=== PATIENT | female | born 1955 | race Caucasian/White ===

== ENCOUNTER → 2016-10-12 | Outpatient (CLI) | payer OTHER ==
--- NOTE | 2016-10-12 19:55 | XR ---
Cervical spine HISTORY: Neck pain 5 views of the cervical spine submitted on 7 images. No comparisons Multilevel facet arthropathy is noted. Bone mineralization is reduced. At C5-6 there is bilateral for aminal encroachment. Lateral extension endplate disc complex is noted. Cervical vertebral bodies show preserved height and alignment. Loss of disc height present at C5-6, there is associated spondylosis . C7-T1 not well seen IMPRESSION: Degenerative disc disease, consider cervical MRI
--- NOTE | 2016-10-12 22:05 | MR ---
EXAMINATION TYPE: MR lumbar spine wo con DATE OF EXAM: 10/12/2016 6:15 PM COMPARISON: NONE HISTORY: LBP, BLE radiculopathy after falling on ice 3 weeks ago TECHNIQUE: Multiplanar, multisequence images of the lumbar spine were acquired. L1-L2: Normal disc appearance without desiccation. No herniation, protrusion or disc bulging. No ca nal stenosis is present. Foramina are patent bilaterally. L2-L3: Normal disc appearance without desiccation. No herniation, protrusion or disc bulging. No ca nal stenosis is present. Foramina are patent bilaterally. L3-L4: Loss of disc height and signal is present. Circumferential disc bulge causes only minimal ante rior mass effect on the thecal sac, no central stenosis. Some minimal left-sided foraminal encroachme nt is suspected due to lateral extension of endplate disc complex. Mild facet arthropathy change. L4-L5: Posterior broad-based disc bulge causes mild anterior mass effect on the thecal sac. No signif icant central stenosis or foraminal encroachment. There is loss of disc height and signal. Facet arth ropathy with hypertrophy of ligamentum flavum causing some minimal posterior lateral mass effect on t he thecal sac L5-S1: Loss of disc height and signal is present, there is a small central posterior disc herniation contacting the anterior thecal sac. No significant central stenosis or foraminal encroachment. There is facet arthropathy change encroaches on the lateral recesses. Lumbar segments are intact. Lumbar vertebral bodies show preserved height and alignment. Multilevel s pondylosis, endplate discogenic marrow signal changes present, increased signal within the L2 vertebr al body is likely territory sales representative of hemangioma. No paraspinal masses are identified. Conus medullar is shows a small syrinx or prominence of the central aqueduct is otherwise normal. Large cystic focus associated with the left kidney measures approximately 5.5 cm. Multilevel nerve sheath diverticula a re present. IMPRESSION: Degenerative disc disease as described.
== END ==
LOC: RADMRIMAIN 17:03
PROVIDERS: ATTEND Family Medicine
DX: M51.36 Other intervertebral disc degeneration, lumbar region (principal); M50.30 Other cervical disc degeneration, unspecified cervical region
CPT/HCPCS: 72050; 72148

== ENCOUNTER → 2016-10-25 | Outpatient (CLI) | payer OTHER ==
--- NOTE | 2016-10-25 14:01 | MR ---
EXAMINATION TYPE: MR cervical spine wo con DATE OF EXAM: 10/25/2016 9:46 AM COMPARISON: Plain films 12 October 2016 HISTORY: Neck pain since TECHNIQUE: Multiplanar, multisequence images of the cervical spine were acquired. C2-C3: No evidence for degenerative disc disease. No disc bulge/herniation or protrusion. No Canal stenosis. Mild left-sided foraminal encroachment due to facet arthropathy.. C3-C4: Right posterior paracentral extension of endplate disc complex causes anterolateral mass effec t on the thecal sac. Bilateral foraminal encroachment right greater than left. On mild central stenos is C4-C5: Broad-based posterior disc bulge causes mild anterior mass effect on the thecal sac. Foraminal encroachment is present bilaterally right greater than left. C5-C6: Posterior extension of endplate disc complex somewhat eccentric toward the left, there is mode rate central canal stenosis, bilateral foraminal encroachment left greater than right due to a circum ferential extension of endplate disc complex. C6-C7: Posterior paracentral extension of endplate disc complex causes anterolateral mass effect on t he thecal sac. Some left-sided foraminal encroachment is present due to lateral extension endplate di sc complex. No significant central stenosis. C7-T1: No evidence for degenerative disc disease. No disc bulge/herniation or protrusion. No Canal stenosis. Foramina are patent bilaterally. Cervical segments are intact. Cervical vertebral bodies show preserved height, there is endplate dis cogenic marrow signal change, multilevel spondylosis, associated loss of disc height and signal is gr eatest at C5-6 and C6-7. There is normal alignment. Cervical spinal cord is of normal signal. Crani overtebral junction relationships are within normal limits. IMPRESSION: Degenerative disc disease, multilevel foraminal encroachment, facet arthropathy. Spinal stenosis grea test at C5-6.
== END | disposition home or self-care (01) ==
LOC: RADMRIMAIN 09:09
PROVIDERS: ATTEND Family Medicine
DX: M48.02 Spinal stenosis, cervical region (principal); M50.30 Other cervical disc degeneration, unspecified cervical region; M46.92 Unspecified inflammatory spondylopathy, cervical region
CPT/HCPCS: 72141

== ENCOUNTER → 2017-10-19 | Outpatient (CLI) | payer OTHER ==
--- NOTE | 2017-10-19 14:29 | CT ---
EXAMINATION TYPE: CT abdomen pelvis wo con DATE OF EXAM: 10/19/2017 COMPARISON: 01/26/2016 HISTORY: Right upper quadrant pain with nausea and diarrhea on and off for 12 years, more frequent re cently. CT DLP: 386.1 mGycm Examination of the solid and hollow viscera is limited given the lack of contrast. FINDINGS: LUNG BASES: No evidence for nodule. No evidence for infiltrate. LIVER/GB: Hepatic steatosis is again noted. Mild hepatomegaly. The gallbladder is unremarkable. No sp adrianna-occupying hepatic lesion. PANCREAS: No pancreatic mass identified. No inflammatory process seen. SPLEEN: No evidence for splenomegaly. No intrasplenic lesions seen. ADRENALS: No adrenal nodules identified. No evidence for thickening. KIDNEYS: Large cyst left kidney upper pole measuring 5.8 cm.. No nephrolithiasis. No hydronephrosis. BOWEL: Appendix has a normal appearance. No evidence of bowel obstruction. No inflammatory process. Lymph nodes: No evidence for adenopathy greater than 1 cm. Abdominal aorta: Atheromatous changes seen. No evidence for aneurysm. Genital organs: No significant abnormality. Other: No significant abnormality. IMPRESSION: 1. Mild hepatomegaly with hepatic steatosis. 2. Large left renal cyst simple type.
== END | disposition home or self-care (01) ==
LOC: RADCTMAIN 12:18
PROVIDERS: ATTEND Family Medicine
DX: K76.0 Fatty (change of) liver, not elsewhere classified (principal); R16.0 Hepatomegaly, not elsewhere classified; N28.1 Cyst of kidney, acquired
CPT/HCPCS: 74176

== ENCOUNTER → 2018-02-06 | Outpatient (CLI) | payer OTHER ==
--- NOTE | 2018-02-07 08:18 | MM ---
Reason for exam: clinical finding. Baseline mammogram. History: Patient is postmenopausal and history of other cancer. Indicated problem(s): pain in the left breast. Physical Findings: Nurse did not find any significant physical abnormalities on exam. MG Diagnostic Mammo w CAD EMMIE Bilateral CC, MLO, and XCCL view(s) were taken. The breast tissue is heterogeneously dense. This may lower the sensitivity of mammography. Nodular asymmetry central left MLO view becomes less defined on spot MLO and disperses on ML. Otherwise, no discrete abnormallity. Precautionary 6 month follow up recommended. These results were verbally communicated with the patient and result sheet given to the patient on 02/06/18. ASSESSMENT: Probably benign, BI-RAD 3 RECOMMENDATION: Follow-up diagnostic mammogram of the left breast in 6 months.
== END | disposition home or self-care (01) ==
LOC: RADMAMWWP 14:45
PROVIDERS: ATTEND Family Medicine
DX: N64.4 Mastodynia (principal)
CPT/HCPCS: 77066

== ENCOUNTER → 2018-05-26 | Outpatient (CLI) | payer OTHER ==
--- NOTE | 2018-05-26 09:15 | MR ---
EXAMINATION TYPE: MR angio head wo con DATE OF EXAM: 05/26/2018 8:39 AM COMPARISON: Previous study dated 09/21/2016. HISTORY: F/U on cerebral aneurysm, compare to prior MRA 09-21-16 TECHNIQUE: Time of flight images focusing on the [place] were performed without contrast. FINDINGS: The vertebral arteries are diminutive. 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 There is a tiny outpouching at the level of the left middle cerebral artery trifurcation. This is unc hanged in size and appearance from the previous study. Both ophthalmic arteries are visualized. There is normal arborization of the middle cerebral arteries . Both anterior cerebral arteries are patent. IMPRESSION: 1. NORMAL VARIANT ANATOMY. 2. PERSISTENT OUTPOUCHING AT THE TRIFURCATION OF THE LEFT MIDDLE CEREBRAL ARTERY, UNCHANGED FROM PREV IOUS.
== END | disposition home or self-care (01) ==
LOC: RADMRIMAIN 08:16
PROVIDERS: ATTEND Psychiatry & Neurology Neurology
DX: I67.1 Cerebral aneurysm, nonruptured (principal)
CPT/HCPCS: 70544

== ENCOUNTER → 2019-01-08 | Outpatient (CLI) | payer OTHER ==
--- NOTE | 2019-01-08 10:13 | MM ---
Reason for exam: additional evaluation requested from prior study. Last mammogram was performed 11 months ago. History: Patient is postmenopausal and history of other cancer. Physical Findings: Nurse did not find any significant physical abnormalities on exam. MG Diagnostic Mammo w CAD EMMIE Bilateral CC and MLO view(s) were taken. Prior study comparison: February 06, 2018, bilateral MG diagnostic mammo w CAD EMMIE. The breast tissue is heterogeneously dense. This may lower the sensitivity of mammography. Stable benign calcifications. There is no discrete abnormality. No significant new findings when compared with previous films. These results were verbally communicated with the patient and result sheet given to the patient on 01/08/19. ASSESSMENT: Benign, BI-RAD 2 RECOMMENDATION: Routine screening mammogram of both breasts in 1 year. Manage patient on a clinical basis.
== END | disposition home or self-care (01) ==
LOC: RADMAMWWP 09:26
PROVIDERS: ATTEND Family Medicine
DX: R92.8 Other abnormal and inconclusive findings on diagnostic imaging of breast (principal)
CPT/HCPCS: 77066

== ENCOUNTER → 2019-02-19 | Outpatient (CLI) | payer OTHER ==
[2019-02-19 14:24] LABS: HCT 47.2 % (34.0-46.0); HGB 15.2 gm/dL (11.4-16.0); MCH 30.6 pg (25.0-35.0); MCHC 32.2 g/dL (31.0-37.0); MCV 95.1 fL (80.0-100.0); Mean Platelet Volume 7.2; Platelet Count 228 k/uL (150-450); RBC 4.96 m/uL (3.80-5.40); RDW 13.9 % (11.5-15.5); WBC 6.3 k/uL (3.8-10.6)
[2019-02-19 20:43] LABS: Albumin 4.2 g/dL (3.80-4.90); Albumin/Globulin Ratio 2.1 (1.60-3.17); Anion Gap 9.1 mmol/L (4.00-12.00); Calcium 8.9 mg/dL (8.7-10.3); Carbon Dioxide 24.9 mmol/L (21.6-31.8); Potassium 4.1 mmol/L (3.5-5.5); Total Bilirubin 0.4 mg/dL (0.2-1.2); Total Protein 6.2 g/dL (6.2-8.2)
== END | disposition home or self-care (01) ==
LOC: LABWHC1 12:46
PROVIDERS: ATTEND Surgery Plastic and Reconstructive Surgery
DX: Z01.818 Encounter for other preprocedural examination (principal); Z01.812 Encounter for preprocedural laboratory examination
CPT/HCPCS: 36415; 80053; 85027; 93005

== ENCOUNTER → 2019-05-30 | Outpatient (CLI) | payer OTHER | END | disposition home or self-care (01) | LOC: RADECHMAIN 12:02 | PROVIDERS: ATTEND Nuclear Medicine Nuclear Cardiology | DX: Z53.9 Procedure and treatment not carried out, unspecified reason (principal) ==

== ENCOUNTER → 2022-04-28 | Outpatient (CLI) | payer MEDICARE ==
--- NOTE | 2022-04-28 12:49 | XR ---
EXAMINATION TYPE: XR shoulder complete LT DATE OF EXAM: 04/28/2022 COMPARISON: NONE HISTORY: Pain TECHNIQUE: Three views are submitted. FINDINGS: The osseous structures are intact. There is no acute fracture or dislocation. The AC joint is maint ained. Diffuse osteopenia. Tiny calcific density along the upper margin of the glenoid could be on t he basis of calcific tendinosis. Consider short-term follow-up MRI. IMPRESSION: 1. No acute process.
== END | disposition home or self-care (01) ==
LOC: RADXRMAIN 12:27
PROVIDERS: ATTEND Family Medicine
DX: S46.011A Strain of muscle(s) and tendon(s) of the rotator cuff of right shoulder, initial encounter (principal); X58.XXXA Exposure to other specified factors, initial encounter

== ENCOUNTER → 2022-06-18 | Outpatient (CLI) | payer MEDICARE ==
--- NOTE | 2022-06-19 03:44 | MR ---
EXAMINATION TYPE: MR shoulder LT wo con DATE OF EXAM: 06/18/2022 COMPARISON: None HISTORY: Left shoulder pain/strain. Multiplanar multiecho imaging of the left shoulder without contrast. Subscapularis tendon is intact. Biceps tendon is intact. The glenoid bernabe appear intact. The AC joint shows mild spur formation. There is mild subacromial impingement on the supraspinatus te ndon. The supraspinatus tendon is intact. No retraction. There is mild shoulder joint effusion. There is fluid around the subscapularis tendon. No fracture seen. IMPRESSION: No evidence of rotator cuff tear. There is hypertrophic spurring at the AC joint with subacromial imp ingement on the supraspinatus muscle and tendon. Small shoulder joint effusion.
== END | disposition home or self-care (01) ==
LOC: RADMRIMAIN 12:11
PROVIDERS: ATTEND Family Medicine
DX: M19.012 Primary osteoarthritis, left shoulder (principal)

== ENCOUNTER → 2022-07-26 | Outpatient (CLI) | payer MEDICARE ==
--- NOTE | 2022-07-26 08:48 | US ---
EXAMINATION TYPE: US gallbladder DATE OF EXAM: 07/26/2022 COMPARISON: Abdominal ultrasound 01/28/2016. CLINICAL HISTORY: R10.11 RUQ PAIN. Intermittent RUQ pain for 15 years, nausea TECHNIQUE: Multiple sonographic images of the right upper quadrant are obtained. FINDINGS: EXAM MEASUREMENTS: Liver Length: 17.7 cm Gallbladder Wall: 0.2 cm CBD: 0.3 cm Right Kidney: 9.9 x 4.7 x 5.4 cm Pancreas: Tail obscured by overlying bowel gas Liver: Increased attenuation, decreased visualization of vessels suggestive of fatty infiltrate . N o focal lesion. Gallbladder: no evidence of stones. No pericholecystic fluid or wall thickening. Evidence for sonographic Duarte's sign: no CBD: wnl Right Kidney: no evidence of hydronephrosis . No solid mass or shadowing calculi. IMPRESSION: 1. No acute process. 2. Hepatic steatosis.
== END | disposition home or self-care (01) ==
LOC: RADUSWWP 08:05
PROVIDERS: ATTEND Internal Medicine Gastroenterology
DX: K76.0 Fatty (change of) liver, not elsewhere classified (principal)
CPT/HCPCS: 76705

== ENCOUNTER → 2022-08-17 | Outpatient (CLI) | payer MEDICARE ==
--- NOTE | 2022-08-17 12:06 | US ---
EXAMINATION TYPE: US kidneys/renal and bladder DATE OF EXAM: 08/17/2022 COMPARISON: 01/20/2016. CLINICAL HISTORY: N28.1 CYST OF KIDNEY, ACQUIRED. Pain hx of cyst. EXAM MEASUREMENTS: Right Kidney: 9.4 x 4.5 x 5.1 cm Left Kidney: 12.2 x 6.0 x 4.9 cm Right Kidney: No hydronephrosis or masses seen Left Kidney: Cystic area upper pole 8.4 x 7.0 x 8.2 cm. Bladder: Anechoic There is no evidence for hydronephrosis at this point in time. No nephrolithiasis is seen. The urina ry bladder is anechoic. IMPRESSION: 1. No evidence of obstructive uropathy. 2. Left renal cyst which has increased in size from 2015.
== END | disposition home or self-care (01) ==
LOC: RADUSWWP 10:33
PROVIDERS: ATTEND Family Medicine
DX: N28.1 Cyst of kidney, acquired (principal); I49.9 Cardiac arrhythmia, unspecified
CPT/HCPCS: 76770

== ENCOUNTER 2022-08-18 09:08 | Emergency (ER) | payer MEDICARE ==
[2022-08-18] MEDS ORDERED: SODIUM CHLORIDE 0.9% 1,000 ML IV STA (09:27)
[2022-08-18 09:42] LABS: Basophils % (A) 1 %; Eosinophils # (A) 0.2 k/uL (0-0.7); Eosinophils % (A) 3 %; HGB 14.6 gm/dL (11.4-16.0); Lymphocytes # (A) 1.3 k/uL (1.0-4.8); Lymphocytes % (A) 26 %; MCH 32.7 pg (25.0-35.0); MCHC 34.8 g/dL (31.0-37.0); MCV 93.9 fL (80.0-100.0); Mean Platelet Volume 8.1; Monocytes # (A) 0.3 k/uL (0-1.0); Monocytes % (A) 6 %; Neutrophils # (A) 3.1 k/uL (1.3-7.7); Neutrophils % (A) 62 %; Platelet Count 242 k/uL (150-450); RBC 4.47 m/uL (3.80-5.40); RDW 13.7 % (11.5-15.5)
[2022-08-18 10:01] LABS: Partial Thromboplastin Time 24.5 sec (22.0-30.0); Prothrombin Time 10.6 sec (9.0-12.0)
[2022-08-18 10:08] LABS: ALT 22 U/L (4-34); AST 23 U/L (14-36); African American GFR (CKD) >90 (>60 ml/min/1.73 sqM); Albumin 4.2 g/dL (3.5-5.0); Alkaline Phosphatase 70 U/L (38-126); Amylase 55 U/L (30-110); Anion Gap 7 mmol/L; Blood Urea Nitrogen 5 mg/dL (7-17); Calcium 8.8 mg/dL (8.4-10.2); Carbon Dioxide 26 mmol/L (22-30); Chloride 103 mmol/L (98-107); Glucose 118 mg/dL (74-99); Lipase 70 U/L (23-300); Non-African American GFR(CKD) >90 (>60 ml/min/1.73 sqM); Potassium 4.3 mmol/L (3.5-5.1); Sodium 136 mmol/L (137-145); Total Bilirubin 0.5 mg/dL (0.2-1.3)
--- NOTE | 2022-08-18 10:08 | ED ---
General Adult HPI - General Chief complaint: Recheck/Abnormal Lab/Rx Stated complaint: Cyst on Kidney Time Seen by Provider: 08/18/22 09:18 Source: patient, RN notes reviewed Mode of arrival: ambulatory Limitations: no limitations - History of Present Illness Initial comments: 66-year-old female presents emergency Department chief complaint of left flank pain. Patient states she's been having increasing pain since Monday. Patient had an ultrasound yesterday showed enlarging cyst of her left kidney. She states this was known to her but is getting bigger. Patient denies any trauma no rashes. She states nothing really makes the pain feel better or worse. Patient states that she cannot get comfortable. She's had no change in bowel habits denies diarrhea, constipation melena hematochezia. No dysuria no hematuria no chest pain or shortness breath. - Related Data Allergies Allergy/AdvReac Type Severity Reaction Status Date / Time No Known Allergies Allergy Verified 08/18/22 09:12 Review of Systems ROS Statement: Those systems with pertinent positive or pertinent negative responses have been documented in the HPI. ROS Other: All systems not noted in ROS Statement are negative. Past Medical History Past Medical History: Hypertension History of Any Multi-Drug Resistant Organisms: None Reported Past Surgical History: Section Past Psychological History: No Psychological Hx Reported Smoking Status: Current every day smoker Past Alcohol Use History: None Reported Past Drug Use History: None Reported General Exam Limitations: no limitations General appearance: alert, in no apparent distress Head exam: Present: atraumatic, normocephalic, normal inspection Neck exam: Present: normal inspection. Absent: tenderness, meningismus, lymphadenopathy Respiratory exam: Present: normal lung sounds bilaterally. Absent: respiratory distress, wheezes, rales, rhonchi, stridor Cardiovascular Exam: Present: regular rate, normal rhythm, normal heart sounds. Absent: systolic murmur, diastolic murmur, rubs, gallop, clicks GI/Abdominal exam: Present: soft, normal bowel sounds. Absent: distended, tenderness, guarding, rebound, rigid Back exam: Absent: CVA tenderness (R), CVA tenderness (L) Neurological exam: Present: alert Skin exam: Present: warm, dry, intact, normal color. Absent: rash Course Vital Signs 08/18/22 09:12 Temperature 98.2 F Pulse Rate 85 Respiratory 16 Rate Blood Pressure 149/72 O2 Sat by Pulse 97 Oximetry Medical Decision Making - Medical Decision Making 66-year-old female presented for left flank pain. Patient CT does show simple appearing cyst that is larger than prior. There is no other acute abnormality's upon CT. Labs did not reveal any acute findings. This is not reproducible pain and felt less likely muscle skeletal dental still possibility. Patient provided pain control will be discharged in stable condition follow-up with urology. - Lab Data Result diagrams: 08/18/22 09:29 08/18/22 09:29 Lab Results 08/18/22 08/18/22 08/18/22 Range/Units 09:29 09:29 09:29 WBC 5.0 (3.8-10.6) k/uL RBC 4.47 (3.80-5.40) m/uL Hgb 14.6 (11.4-16.0) gm/dL Hct 42.0 (34.0-46.0) % MCV 93.9 (80.0-100.0) fL MCH 32.7 (25.0-35.0) pg MCHC 34.8 (31.0-37.0) g/dL RDW 13.7 (11.5-15.5) % Plt Count 242 (150-450) k/uL MPV 8.1 Neutrophils % 62 % Lymphocytes % 26 % Monocytes % 6 % Eosinophils % 3 % Basophils % 1 % Neutrophils # 3.1 (1.3-7.7) k/uL Lymphocytes # 1.3 (1.0-4.8) k/uL Monocytes # 0.3 (0-1.0) k/uL Eosinophils # 0.2 (0-0.7) k/uL Basophils # 0.0 (0-0.2) k/uL PT 10.6 (9.0-12.0) sec INR 1.0 (<1.2) APTT 24.5 (22.0-30.0) sec Sodium (137-145) mmol/L Potassium (3.5-5.1) mmol/L Chloride (98-107) mmol/L Carbon Dioxide (22-30) mmol/L Anion Gap mmol/L BUN (7-17) mg/dL Creatinine (0.52-1.04) mg/dL Est GFR (CKD-EPI)AfAm (>60 ml/min/1.73 sqM) Est GFR (CKD-EPI)NonAf (>60 ml/min/1.73 sqM) Glucose (74-99) mg/dL Plasma Lactic Acid Juan (0.7-2.0) mmol/L Calcium (8.4-10.2) mg/dL Total Bilirubin (0.2-1.3) mg/dL AST (14-36) U/L ALT (4-34) U/L Alkaline Phosphatase (38-126) U/L Total Protein (6.3-8.2) g/dL Albumin (3.5-5.0) g/dL Amylase (30-110) U/L Lipase (23-300) U/L Urine Color Yellow Urine Appearance Cloudy H (Clear) Urine pH 5.5 (5.0-8.0) Ur Specific [place] 1.013 (1.001-1.035) Urine Protein Negative (Negative) Urine Glucose (UA) Negative (Negative) Urine Ketones Negative (Negative) Urine Blood Negative (Negative) Urine Nitrite Negative (Negative) Urine Bilirubin Negative (Negative) Urine Urobilinogen <2.0 (<2.0) mg/dL Ur Leukocyte Esterase Small H (Negative) Urine RBC 2 (0-5) /hpf Urine WBC 4 (0-5) /hpf Ur Squamous Epith Cells 6 H (0-4) /hpf Urine Mucus Few H (None) /hpf 08/18/22 08/18/22 Range/Units 09:29 09:29 WBC (3.8-10.6) k/uL RBC (3.80-5.40) m/uL Hgb (11.4-16.0) gm/dL Hct (34.0-46.0) % MCV (80.0-100.0) fL MCH (25.0-35.0) pg MCHC (31.0-37.0) g/dL RDW (11.5-15.5) % Plt Count (150-450) k/uL MPV Neutrophils % % Lymphocytes % % Monocytes % % Eosinophils % % Basophils % % Neutrophils # (1.3-7.7) k/uL Lymphocytes # (1.0-4.8) k/uL Monocytes # (0-1.0) k/uL Eosinophils # (0-0.7) k/uL Basophils # (0-0.2) k/uL PT (9.0-12.0) sec INR (<1.2) APTT (22.0-30.0) sec Sodium 136 L (137-145) mmol/L Potassium 4.3 (3.5-5.1) mmol/L Chloride 103 (98-107) mmol/L Carbon Dioxide 26 (22-30) mmol/L Anion Gap 7 mmol/L BUN 5 L (7-17) mg/dL Creatinine 0.55 (0.52-1.04) mg/dL Est GFR (CKD-EPI)AfAm >90 (>60 ml/min/1.73 sqM) Est GFR (CKD-EPI)NonAf >90 (>60 ml/min/1.73 sqM) Glucose 118 H (74-99) mg/dL Plasma Lactic Acid Juan 2.3 H* (0.7-2.0) mmol/L Calcium 8.8 (8.4-10.2) mg/dL Total Bilirubin 0.5 (0.2-1.3) mg/dL AST 23 (14-36) U/L ALT 22 (4-34) U/L Alkaline Phosphatase 70 (38-126) U/L Total Protein 7.0 (6.3-8.2) g/dL Albumin 4.2 (3.5-5.0) g/dL Amylase 55 (30-110) U/L Lipase 70 (23-300) U/L Urine Color Urine Appearance (Clear) Urine pH (5.0-8.0) Ur Specific [place] (1.001-1.035) Urine Protein (Negative) Urine Glucose (UA) (Negative) Urine Ketones (Negative) Urine Blood (Negative) Urine Nitrite (Negative) Urine Bilirubin (Negative) Urine Urobilinogen (<2.0) mg/dL Ur Leukocyte Esterase (Negative) Urine RBC (0-5) /hpf Urine WBC (0-5) /hpf Ur Squamous Epith Cells (0-4) /hpf Urine Mucus (None) /hpf Disposition Clinical Impression: Renal cyst, Flank pain Disposition: HOME SELF-CARE Condition: Stable Instructions (If sedation given, give patient instructions): Kidney Cyst (ED), Flank Pain (ED) Additional Instructions: Please return to the Emergency Department if symptoms worsen or any other concerns. Is patient prescribed a controlled substance at d/c from ED?: No Referrals: Rian Nails DO [Primary Care Provider] - 1-2 days Song Ward MD [STAFF PHYSICIAN] - 1-2 days Time of Disposition: 11:06
[2022-08-18 10:41] LABS: Appearance,Urine Cloudy (Clear); Bilirubin,Urine Negative (Negative); Blood,Urine Negative (Negative); Color,Urine Yellow; Glucose,Urine (UA) Negative (Negative); Ketones,Urine Negative (Negative); Leukocyte Esterase,Urine Small (Negative); Mucus,Urine Few /hpf; Nitrite,Urine Negative (Negative); PH, Urine 5.5 (5.0-8.0); Protein,Urine Negative (Negative); RBC,Urine 2 /hpf (0-5); Specific Gravity,Urine 1.013 (1.001-1.035); Squamous Epithelial Cell,Urine 6 /hpf (0-4); Urobilinogen,Urine <2.0 mg/dL (<2.0); WBC,Urine 4 /hpf (0-5)
--- NOTE | 2022-08-18 10:49 | CT ---
EXAMINATION TYPE: CT abdomen pelvis w con CT DLP: 848.6 mGycm, Automated exposure control for dose reduction was used. DATE OF EXAM: 08/18/2022 10:36 AM COMPARISON: CT abdomen pelvis most recent from 10/19/2017, renal ultrasound 08/17/2022. CLINICAL INDICATION:Female, 66 years old with history of left flank pain, abnormal ultrasound; Left s ided flank pain. TECHNIQUE: Standard CT of the abdomen and pelvis following the administration of 70 cc of Isovue 30 0 IV contrast material. Coronal and sagittal reformats were performed. FINDINGS: LOWER CHEST: Posterior dependent subsegmental atelectasis is noted. ABDOMEN LIVER: Diffusely hypoattenuating parenchyma. GALLBLADDER AND BILE DUCTS: Unremarkable. PANCREAS: Unremarkable. SPLEEN: Unremarkable. ADRENAL GLANDS: Unremarkable. KIDNEYS AND URETERS: No evidence of hydronephrosis or renal calculus. The kidneys enhance symmetrical ly. 7.2 cm simple appearing cyst within the superior pole of the left kidney, previously 5.8 cm. No e nhancing component identified. PELVIS BLADDER: Unremarkable REPRODUCTIVE: Unremarkable. ABDOMEN & PELVIS STOMACH AND BOWEL: Stomach and duodenum are unremarkable. No focal wall thickening. No surrounding in flammatory changes. The appendix is within normal limits. No evidence of bowel obstruction. PERITONEUM: No evidence of pneumoperitoneum or free fluid. VASCULATURE: Moderate atherosclerotic calcifications are present throughout the abdominal aorta and i ts branches. No evidence of aortic aneurysm. Few pelvic phleboliths. MUSCULOSKELETAL: No acute osseous abnormalities. Mild degenerative disc disease of the lower lumbar s pine. LYMPH NODES: No gross evidence for lymphadenopathy. SOFT TISSUE/ABDOMINAL WALL: Unremarkable IMPRESSION: 1. No acute abdominal/pelvic process. 2. Increased size of simple appearing left renal cyst measuring 7.2 cm, previously 5.8 cm. No enhanci ng component. 3. Hepatic steatosis.
[2022-08-18] MEDS ORDERED: ACET/COD 300 MG/30 MG STARTER PACK 6 TAB BTL PO STA (11:06)
[2022-08-18 11:35] VITALS: BP 118/69; PULSE 94; RESP 18; TEMP 97.8
== END 2022-08-18 11:37 | disposition home or self-care (01) ==
LOC: EC 09:08
DX: N28.1 Cyst of kidney, acquired (principal); I10 Essential (primary) hypertension; F17.200 Nicotine dependence, unspecified, uncomplicated
CPT/HCPCS: 36415; 80053; 82150; 83605; 83690; 85025; 85610; 85730; 81001; 74177; 99284; 96360; 96361; Q9967

== ENCOUNTER 2022-09-14 08:59 | Day surgery (SDC) | payer MEDICARE ==
[2022-09-14 09:36] LABS: Mean Platelet Volume 7.9; Platelet Count 247 k/uL (150-450)
[2022-09-14 09:45] LABS: Prothrombin Time 10.5 sec (9.0-12.0)
[2022-09-14 09:46] VITALS: RESP 16; TEMP 98.1
[2022-09-14 10:57] VITALS: BP 112/58; PULSE 82
--- NOTE | 2022-09-14 11:05 | CT ---
EXAMINATION TYPE: CT guided aspiration DATE OF EXAM: 09/14/2022 COMPARISON: 08/18/2022 HISTORY: left renal cyst CT DLP: 1009 mGycm The procedure is discussed with the patient, the risks, complications, benefits and alternatives, wer e discussed and any questions were answered. Informed consent was obtained. The patient is placed p kalyan on the CT table, prepped and draped in the usual sterile fashion. Utilizing a 22-gauge Chiba needle access into the left renal cyst was achieved with aspiration of 200 cc of serous fluid. No pathology was requested. All elements of maximal barrier sterile technique we re utilized. The patient remained stable throughout the procedure with no immediate postprocedural c omplication. IMPRESSION: 1. Successful CT guided fine needle aspiration of a left renal cyst.
== END 2022-09-14 11:10 | disposition home or self-care (01) ==
LOC: RADPROMAIN 08:59
PROVIDERS: ATTEND Urology
DX: N28.1 Cyst of kidney, acquired (principal)
CPT/HCPCS: 36415; 77012; 85049; 85610

== ENCOUNTER 2022-10-18 07:51 | Day surgery (SDC) | payer MEDICARE ==
[2022-10-13 10:30] VITALS: BMI 27.8
--- NOTE | 2022-10-18 07:31 | HP ---
HISTORY AND PHYSICAL DATE OF SURGERY: 10/18/2022. HISTORY OF PRESENT ILLNESS: Corinne Miller is a 66-year-old patient seen with progressive left shoulder pain. We discussed options for treatment. She elected to proceed with left shoulder arthroscopy. Consent was obtained. Medical clearance was provided by Dr. Geller. PAST MEDICAL HISTORY: Hypertension, hyperlipidemia, and anxiety. PAST SURGICAL HISTORY: section, skin cancer surgery. DAILY MEDICATIONS: Ativan, Cozaar, Toprol, Tylenol. ALLERGIES: None. SOCIAL HISTORY: She smokes half pack of cigarettes daily. PHYSICAL EXAMINATION: Evaluation of the left shoulder, flexion is 90 degrees, abduction 70 degrees, external rotation is 10 degrees with weakness. Tenderness along the anterolateral acromion and acromioclavicular joint as well as rotator cuff insertion. Impingement is positive at 80 degrees. Drop-arm sign is positive. Cross-body adduction sign is positive. Distal neurovascular exam is intact. RADIOGRAPHS: Radiographs of the left shoulder revealed a type 2 acromion, moderate acromioclavicular joint osteoarthritis. Left shoulder MRI revealed impingement along with acromioclavicular joint osteoarthritis. IMPRESSION: 1. Left shoulder impingement syndrome with possible rotator cuff tear. 2. Left shoulder acromioclavicular joint osteoarthritis. 3. Hypertension. PLAN: Left shoulder arthroscopy, subacromial decompression, Manoj procedure, possible arthroscopic rotator cuff repair and debridement. MMODL / DANIELLEN: [id number] /
[~2022-10-18 07:51] MED LIST: DEXAMETHASONE SOD PHOSPHATE 4 MG/ML 1 ML VIAL IV ONE; HYDROmorphone 0.5 MG/0.5 ML SYRINGE IVP PRN; LACTATED RINGERS 1,000 ML IV SCH; LIDOCAINE 1% (10MG/ML) FOR IV START INTRADERMA PRN; MIDAZOLAM 2 MG/2 ML VIAL IV PRN; ONDANSETRON 4 MG/2 ML VIAL IVP ONE
[2022-10-18] MEDS ORDERED: ONDANSETRON 4 MG/2 ML VIAL ONE (08:16)
[2022-10-18 08:28] VITALS: TEMP 97.9
[2022-10-18] MEDS ORDERED: MIDAZOLAM 2 MG/2 ML VIAL IVP ONE (08:44)
[2022-10-18] MEDS ORDERED: LIDOCAINE 2% INJ 20 MG/ML (2 ML VIAL) ONE (09:25)
[2022-10-18] MEDS ORDERED: PROPOFOL 10 MG/ML 20 ML VIAL IV ONE (09:25)
[2022-10-18] MEDS ORDERED: SUCCINYLCHOLINE CHLORIDE 200 MG/10 ML VIAL IV ONE (09:25)
[2022-10-18] MEDS ORDERED: fentaNYL (PF) 50 MCG/ML 2 ML AMP ONE (09:25)
[2022-10-18] MEDS ORDERED: DEXAMETHASONE SOD PHOSPHATE 4 MG/ML 1 ML VIAL ONE (09:25)
[2022-10-18] MEDS ORDERED: ROPIVACAINE 5 MG/ML 30 ML VIAL ONE (09:25)
--- NOTE | 2022-10-18 10:49 | P.OP ---
Date of Procedure: 10/18/22 Preoperative Diagnosis: Left shoulder impingement Postoperative Diagnosis: 1. Left shoulder rotator cuff tear 2. Left shoulder impingement 3. Left shoulder superficial labral tear Procedure(s) Performed: 1. Left shoulder arthroscopic rotator cuff repair 2. Left shoulder arthroscopic subacromial decompression 3. Left shoulder arthroscopic debridement labral tear Implants: 15.5 Arthrex Anesthesia: GETA, regional (Interscalene block) Surgeon: Kael Cerda Car Refinisher #1: Alfredito Guzman Estimated Blood Loss (ml): 11 Pathology: none sent Condition: stable Disposition: PACU Indications for Procedure: 66-year-old patient seen with progressive left shoulder pain. After having treatment options discussed, she elected to proceed with arthroscopy. Operative Findings: See description of procedure Description of Procedure: Patient underwent an interscalene block by department of anesthesia. The patient was then taken to the operative suite. The patient underwent a general anesthetic by the department of anesthesia. The patient was placed into a lateral position and secured. There was appropriate padding of the bony prominence. Left shoulder was then prepped and draped in normal sterile orthopedic fashion. We placed the extremity in 10 pounds of longitudinal traction. A posterior incision was now made for a posterior working portal site. The trocar and cannula were inserted into the glenohumeral joint. Arthroscopy was initiated. Spinal needle was now inserted anteriorly, to ascertain the anterior working portal site. An incision was now made in that area, a trocar was inserted followed by a probe. There was superficial tearing of the superior labrum. There were grade 1 chondromalacia changes of the glenoid fossa and humeral head. The biceps tendon was stable. The residual labrum was stable. I debrided out the superficial fraying of the superior labrum. I probed the repair and was found to be stable. Instruments were now removed from the glenohumeral joint. Utilizing the posterior working portal site, the trocar and cannula were inserted into the subacromial space. Arthroscopy initiated. I made an incision 2 fingerbreadths lateral to the acromion. I introduced my trocar followed by my ArthroCare ablator. I now began ablating thick subacromial bursal tissue, which exposed the undersurface of the anterior acromion. There was diminished subacromial space. There was a very prominent anterior acromion. A motorized bur was introduced and a subacromial decompression was performed. I also excised some osteophytes off the inferior aspect of the distal clavicle. The AC joint was visualized and noted to be moderately arthritic, I did not think enough to warrant a Manoj procedure. I turned my attention to the rotator cuff tendon. There was a full-thickness perforation along the distal supraspinatus area. I debrided the margins getting down to stable tendon tissue. The defect/tear measuring approximately 1.5 cm and was freely mobile over the footprint. I abraded the footprint with a motorized bur. With the assistance of Austin ELAINE past 3 everted mattress sutures through good bites of rotator cuff tendon. I punched a hole on the footprint area for insertion of an anchor. All 6 limbs of suture were passed through the head of a 5.5 Arthrex swivel lock anchor. I placed the eyelet into the pre-punched hole. I held it in position while Austin ELAINE tensioned all 6 limbs of suture and deployed anchor with reasonable fixation noted as she did have fairly soft bone. All residual suture limbs were now clipped. We had good compression of the tendon along the entire footprint. Instruments now removed from the portal sites. All portal sites were approximated with nylon suture. Sterile dressings were applied followed by a shoulder sling. Alfredito ELAINE assisted in this case. The patient was awakened, transferred to a bed, and taken to recovery in stable condition.
--- NOTE | 2022-10-18 11:25 | P.ANPRN ---
Procedure Note - Anesthesia - Nerve Block Performed Left Interscalene Single Time Out Performed: Yes Date of Procedure: 10/18/22 Procedure Start Time: 08:43 Procedure Stop Time: 08:48 Location of Patient: PreOp Indication: Acute Post-Operative Pain, Requested by Surgeon Sedation Type: Sedate with meaningful contact maintained Preparation: Sterile Prep Position: Supine Needle Types: Pajunk Needle Gauge: 21 Ultrasound used to visualize needle placement: Yes Ultrasound used to observe medication spread: Yes Blood Aspirated: No Pain Paresthesia on Injection Noted: No Resistance on Injection: Normal Image Stored and Saved: Yes Events: Uneventful and Well Tolerated (ropi .5% 20cc plus dexamethasone 4mg)
[2022-10-18 12:08] VITALS: RESP 16
[2022-10-18 12:57] VITALS: BP 118/69; PULSE 61
== END 2022-10-18 13:01 | disposition home or self-care (01) ==
LOC: OR 07:51
PROVIDERS: ATTEND Orthopaedic Surgery
DX: M75.122 Complete rotator cuff tear or rupture of left shoulder, not specified as traumatic (principal); M75.42 Impingement syndrome of left shoulder; M94.212 Chondromalacia, left shoulder; S43.432A Superior glenoid labrum lesion of left shoulder, initial encounter; M25.712 Osteophyte, left shoulder; M19.012 Primary osteoarthritis, left shoulder; G89.18 Other acute postprocedural pain; I10 Essential (primary) hypertension; E78.5 Hyperlipidemia, unspecified; F41.9 Anxiety disorder, unspecified; F17.210 Nicotine dependence, cigarettes, uncomplicated; G50.0 Trigeminal neuralgia; Z98.890 Other specified postprocedural states; Z79.1 Long term (current) use of non-steroidal anti-inflammatories (NSAID); Z79.891 Long term (current) use of opiate analgesic; Z79.811 Long term (current) use of aromatase inhibitors
CPT/HCPCS: 29827; 29826; 64415; 76942; C1713; J2250; J0330; J1100; J2405; J0690; J3010; J2795; J2704; J2001

== ENCOUNTER 2023-03-06 08:12 | Day surgery (SDC) | payer MEDICARE ==
--- NOTE | 2023-03-05 12:53 | HP ---
HISTORY AND PHYSICAL DATE OF SURGERY: 03/06/2023. HISTORY OF PRESENT ILLNESS: Corinne Miller is a 67-year-old patient seen with left shoulder adhesive capsulitis, history of previous arthroscopic rotator cuff repair. We discussed manipulation under anesthesia with steroid injection. The patient was agreeable and consent was obtained. PAST MEDICAL HISTORY: Hypertension. PAST SURGICAL HISTORY: Shoulder arthroscopy, section. DAILY MEDICATIONS: 1. Cozaar. 2. Gabapentin. 3. Toprol. ALLERGIES: None. SOCIAL HISTORY: Smokes cigarettes. PHYSICAL EVALUATION OF THE LEFT SHOULDER: Portal sites well healed. Flexion is 80 degrees, abduction is 80 degrees. External rotation is to neutral with reasonable strength. Distal neurovascular exam is intact. RADIOGRAPHS: Left shoulder radiographs revealed a conversion to a flat anterior acromion. IMPRESSION: 1. Left shoulder adhesive capsulitis. 2. History of left shoulder arthroscopic rotator cuff repair. 3. Hypertension. PLAN: Manipulation under anesthesia of left shoulder with steroid injection. MMODL / IJN: [id number] /
[2023-03-06] MEDS ORDERED: LIDOCAINE 1% (10MG/ML) FOR IV START INTRADERMA PRN (08:28)
[2023-03-06] MEDS ORDERED: ONDANSETRON 4 MG/2 ML VIAL IVP ONE (08:28)
[2023-03-06] MEDS ORDERED: DEXAMETHASONE SOD PHOSPHATE 4 MG/ML 1 ML VIAL IV ONE (08:28)
[2023-03-06] MEDS ORDERED: LACTATED RINGERS 1,000 ML IV SCH (08:28)
[2023-03-06] MEDS ORDERED: MIDAZOLAM 2 MG/2 ML VIAL IV PRN (08:28)
[2023-03-06 08:33] VITALS: TEMP 98.6
[2023-03-06] MEDS ORDERED: PROPOFOL 10 MG/ML 20 ML VIAL IV ONE (09:40)
--- NOTE | 2023-03-06 09:48 | P.OP ---
Date of Procedure: 03/06/23 Preoperative Diagnosis: Left shoulder adhesive capsulitis Postoperative Diagnosis: Left shoulder adhesive capsulitis Procedure(s) Performed: Manipulation under anesthesia left shoulder with steroid injection Anesthesia: MAC, local Surgeon: Kael Cerda Estimated Blood Loss (ml): 0 Pathology: none sent Condition: stable Disposition: PACU Indications for Procedure: 67-year-old patient with persistent left shoulder adhesive capsulitis. After having treatment options discussed, she elected to proceed with manipulation under anesthesia left shoulder with steroid injection. Consent was obtained. Operative Findings: See description of procedure Description of Procedure: Patient was taken to a monitored anesthesia area. Patient underwent IV sedation by the department of anesthesia. Once sufficient anesthesia was noted I performed a manipulation of the left shoulder achieving near full range of motion with audible tearing of the adhesions. The anterior aspect of the left shoulder was now prepped and draped in the normal sterile orthopedic fashion. I injected a solution of 1 mL Depo-Medrol and 2 mL quarter percent plain Marcaine intra-articular under sterile technique. A sterile Band-Aid was applied. I too k the shoulder through range of motion again. The patient was now awakened having tolerated the procedure well.
[2023-03-06] MEDS: fentaNYL (PF) 50 MCG/ML 2 ML AMP IV ONE ×2 (09:55→10:00)
[2023-03-06] MEDS ORDERED: KETOROLAC 15 MG/ML 1 ML VIAL IVP ONE (10:11)
[2023-03-06] MEDS ORDERED: fentaNYL (PF) 50 MCG/ML 2 ML AMP IV ONE ×2 (10:12→10:22)
[2023-03-06] MEDS ORDERED: HYDROcodone/APAP 7.5-325MG 1 EACH TAB ONE (10:57)
[2023-03-06] MEDS ORDERED: HYDROcodone/APAP 7.5-325MG 1 EACH TAB PO ONE (10:58)
[2023-03-06 11:16] VITALS: BP 116/71; PULSE 73; RESP 18
== END 2023-03-06 11:33 | disposition home or self-care (01) ==
LOC: OR 08:12
PROVIDERS: ATTEND Orthopaedic Surgery
DX: M75.02 Adhesive capsulitis of left shoulder (principal); I10 Essential (primary) hypertension; F17.210 Nicotine dependence, cigarettes, uncomplicated; I48.91 Unspecified atrial fibrillation; F17.200 Nicotine dependence, unspecified, uncomplicated; F41.9 Anxiety disorder, unspecified; Z98.891 History of uterine scar from previous surgery; Z79.899 Other long term (current) drug therapy
CPT/HCPCS: 23700; J3010; J1885; J2704

== ENCOUNTER 2023-05-21 09:51 | Emergency (ER) | payer MEDICARE ==
[2023-05-21] MEDS ORDERED: IPRATROPIUM-ALBUTEROL 3 ML NEB INHALATION STA (10:18)
--- NOTE | 2023-05-21 10:29 | XR ---
EXAMINATION TYPE: XR chest 2V DATE OF EXAM: 05/21/2023 10:26 AM COMPARISON: None TECHNIQUE: XR chest 2V Frontal and lateral views of the chest. CLINICAL INDICATION:Female, 67 years old with history of sob; FINDINGS: Lungs/Pleura: There is no evidence of pleural effusion, focal consolidation, or pneumothorax. Pulmonary vascularity: Unremarkable. Heart/mediastinum: Cardiomediastinal silhouette is unremarkable. Musculoskeletal: No acute osseous pathology. IMPRESSION: No acute cardiopulmonary disease/process.
--- NOTE | 2023-05-21 10:51 | ED ---
URI HPI - General Chief Complaint: Upper Respiratory Infection Stated Complaint: Cough Time Seen by Provider: 05/21/23 10:03 Source: patient, RN notes reviewed Mode of arrival: ambulatory Limitations: no limitations - History of Present Illness Initial Comments: 67-year-old female presents emergency Department with chief complaint of "symptoms. Patient states no focal less days. Patient states she has body aches, fever at home, mild shortness breath and cough. She does admit that she is a smoker denies chest pain she denies any sick contacts. Patient noticed some wheezing but denies use of inhaler or nebulizer. - Related Data Home Medications Medication Instructions Recorded Confirmed Gabapentin [Neurontin] 200 mg PO QID 09/05/22 03/06/23 LORazepam [Ativan] 0.5 mg PO BID PRN 09/05/22 03/06/23 Losartan [Cozaar] 50 mg PO DAILY 09/05/22 03/06/23 Metoprolol Succinate (ER) [Toprol 25 mg PO HS 09/05/22 03/06/23 Xl] Previous Rx's Medication Instructions Recorded HYDROcodone/APAP 7.5-325MG [Browning 1 each PO Q6HR PRN #28 tab 10/18/22 7.5] HYDROcodone/APAP 7.5-325MG [Browning 1 each PO Q6HR PRN #28 tab 03/06/23 7.5-325] Allergies Allergy/AdvReac Type Severity Reaction Status Date / Time hydromorphone [From Dilaudid] AdvReac Nausea Verified 05/21/23 10:00 Review of Systems ROS Statement: Those systems with pertinent positive or pertinent negative responses have been documented in the HPI. ROS Other: All systems not noted in ROS Statement are negative. Past Medical History Past Medical History: Hypertension Additional Past Medical History / Comment(s): kidney cyst History of Any Multi-Drug Resistant Organisms: None Reported Past Surgical History: Section, Orthopedic Surgery Additional Past Surgical History / Comment(s): COLONOSCOPY lft shoulder removal of bone spurs, rotator cuff, and tendon patch. EGD. SURGERY TO REMOVE BASAL CELL CARCINOMA FROM RT SIDE OF NOSE Past Anesthesia/Blood Transfusion Reactions: No Reported Reaction Past Psychological History: Anxiety Smoking Status: Current every day smoker Past Alcohol Use History: None Reported Past Drug Use History: None Reported - Past Family History Father Family Medical History: No Reported History General Exam Limitations: no limitations General appearance: alert, in no apparent distress Head exam: Present: atraumatic, normocephalic, normal inspection Eye exam: Present: normal appearance, PERRL, EOMI. Absent: scleral icterus, conjunctival injection, periorbital swelling ENT exam: Present: normal exam, normal oropharynx, mucous membranes moist Neck exam: Present: normal inspection, full ROM. Absent: tenderness, meningismus, lymphadenopathy Respiratory exam: Present: wheezes. Absent: normal lung sounds bilaterally, respiratory distress, rales, rhonchi, stridor Cardiovascular Exam: Present: regular rate, normal rhythm, normal heart sounds. Absent: systolic murmur, diastolic murmur, rubs, gallop, clicks GI/Abdominal exam: Present: soft, normal bowel sounds. Absent: distended, tenderness, guarding, rebound, rigid Neurological exam: Present: alert Skin exam: Present: warm, dry, intact, normal color. Absent: rash Course Vital Signs 05/21/23 05/21/23 05/21/23 09:57 10:12 11:08 Temperature 98.9 F Pulse Rate 95 90 Respiratory 18 18 Rate Blood Pressure 124/77 O2 Sat by Pulse 97 Oximetry 05/21/23 11:15 Temperature Pulse Rate 96 Respiratory Rate Blood Pressure O2 Sat by Pulse Oximetry Medical Decision Making - Medical Decision Making Was pt. sent in by a medical professional or institution ([facility], [employer], urgent care, hospital, or long term...) When possible be specific @ -No Did you speak to anyone other than the patient for history (EMS, parent, family, police, friend...)? What history was obtained from this source @ -No Did you review nursing and triage notes (agree or disagree)? Why? @ -I reviewed and agree with nursing and triage notes Were old charts reviewed (outside hosp., previous admission, EMS record, old EKG, old radiological studies, urgent care reports/EKG's, long term records)? Report findings @ -No old charts were reviewed Differential Diagnosis (chest pain, altered mental status, abdominal pain women, abdominal pain men, vaginal bleeding, weakness, fever, dyspnea, syncope, headache, dizziness, GI bleed, back pain, seizure, CVA, palpatations, mental health, musculoskeletal)? @ -Influenza, RSV, pneumonia, URI covid EKG interpreted by me (3pts min.). @ -None X-rays interpreted by me (1pt min.). @ -Chest x-ray shows no acute cardio pulmonary process. CT interpreted by me (1pt min.). @ -None done U/S interpreted by me (1pt. min.). @ -None done What testing was considered but not performed or refused? (CT, X-rays, U/S, labs)? Why? @ -None What meds were considered but not given or refused? Why? @ -None Did you discuss the management of the patient with other professionals (professionals i.e. Dr., PA, [employer], lab, RT, psych nurse, licensed social worker, document clerk, teacher, security flex utility officer, comp field case manager)? Give summary @ -No Was smoking cessation discussed for >3mins.? @ -No Was critical care preformed (if so, how long)? @ -No Were there social determinants of health that impacted care today? How? (Homelessness, low income, unemployed, alcoholism, drug addiction, transportation, low edu. Level, literacy, decrease access to med. care, long-term, rehab)? @ -No Was there de-escalation of care discussed even if they declined (Discuss DNR or withdrawal of care, Hospice)? DNR status @ -No What co-morbidities impacted this encounter? (DM, HTN, Smoking, COPD, CAD, Cancer, CVA, ARF, Chemo, Hep., AIDS, mental health diagnosis, sleep apnea, m orbid obesity)? @ -None Was patient admitted / discharged? Hospital course, mention meds given and route, prescriptions, significant lab abnormalities, going to OR and other pertinent info. @ -Discharge patient is influenza a positive. Chest x-ray is unremarkable vitals are stable patient discharged in stable condition. Undiagnosed new problem with uncertain prognosis? @ -No Drug Therapy requiring intensive monitoring for toxicity (Heparin, Nitro, Insulin, Cardizem)? @ -No Were any procedures done? @ -No Diagnosis/symptom? @ -Influenza A Acute, or Chronic, or Acute on Chronic? @ -Acute Uncomplicated (without systemic symptoms) or Complicated (systemic symptoms)? @ -Uncomplicated Side effects of treatment? @ -No Exacerbation, Progression, or Severe Exacerbation? @ -No Poses a threat to life or bodily function? How? (Chest pain, [place], PR, pneumonia, PE, COPD, DKA, ARF, appy, cholecystitis, CVA, Diverticulitis, Homicidal, Suicidal, threat to staff... and all critical care pts) @ -No - Lab Data Lab Results 05/21/23 Range/Units 10:08 Influenza Type A (PCR) Detected A (Not Detectd) Influenza Type B (PCR) Not Detected (Not Detectd) RSV (PCR) Not Detected (Not Detectd) SARS-CoV-2 (PCR) Not Detected (Not Detectd) Disposition Clinical Impression: Influenza A Disposition: HOME SELF-CARE Condition: Stable Instructions (If sedation given, give patient instructions): Influenza (ED) Additional Instructions: Please return to the Emergency Department if symptoms worsen or any other concerns. Is patient prescribed a controlled substance at d/c from ED?: No Referrals: Rian Nails DO [Primary Care Provider] - 1-2 days Time of Disposition: 11:15
[2023-05-21 11:23] VITALS: BP 117/73; PULSE 94; RESP 16; TEMP 98
== END 2023-05-21 11:22 | disposition home or self-care (01) ==
LOC: EC 09:51
DX: J10.1 Influenza due to other identified influenza virus with other respiratory manifestations (principal); I10 Essential (primary) hypertension; F41.9 Anxiety disorder, unspecified; F17.200 Nicotine dependence, unspecified, uncomplicated; Z20.822 Contact with and (suspected) exposure to COVID-19; Z79.899 Other long term (current) drug therapy; Z88.8 Allergy status to other drugs, medicaments and biological substances
CPT/HCPCS: 71046; 87636; 94640; 99283

== ENCOUNTER 2023-05-25 09:34 | Emergency (ER) | payer MEDICARE ==
[2023-05-25] MEDS ORDERED: IPRATROPIUM-ALBUTEROL 3 ML NEB INHALATION STA (10:11)
[2023-05-25] MEDS ORDERED: SODIUM CHLORIDE 0.9% 1,000 ML IV STA (10:11)
[2023-05-25] MEDS ORDERED: methylPREDNISolone SOD SUCCI 125 MG/2 ML VIAL IV STA (10:11)
--- NOTE | 2023-05-25 10:14 | ED ---
General Adult HPI - General Chief complaint: Shortness of Breath Stated complaint: PAULA Time Seen by Provider: 05/25/23 09:58 Source: patient, RN notes reviewed Mode of arrival: ambulatory Limitations: no limitations - History of Present Illness Initial comments: Patient is a pleasant 67-year-old female presenting to the emergency Department with source of breath. Patient is a smoker. Patient was here several days ago diagnosed with influenza A. Onset of symptoms was around 6 days ago .Patient does have occasional cough. Patient has had some fatigue and myalgias. Patient is mostly worried about her breathing. Patient has not been formally diagnosed with any chronic lung disease. - Related Data Home Medications Medication Instructions Recorded Confirmed Gabapentin [Neurontin] 200 mg PO QID 09/05/22 03/06/23 LORazepam [Ativan] 0.5 mg PO BID PRN 09/05/22 03/06/23 Losartan [Cozaar] 50 mg PO DAILY 09/05/22 03/06/23 Metoprolol Succinate (ER) [Toprol 25 mg PO HS 09/05/22 03/06/23 Xl] Previous Rx's Medication Instructions Recorded HYDROcodone/APAP 7.5-325MG [Calvert 1 each PO Q6HR PRN #28 tab 10/18/22 7.5] HYDROcodone/APAP 7.5-325MG [Calvert 1 each PO Q6HR PRN #28 tab 03/06/23 7.5-325] Albuterol Inhaler [Ventolin Hfa 2 puff INHALATION Q4HR PRN #1 each 05/25/23 Inhaler] Allergies Allergy/AdvReac Type Severity Reaction Status Date / Time hydromorphone [From Dilaudid] AdvReac Nausea Verified 05/25/23 09:35 Review of Systems ROS Statement: Those systems with pertinent positive or pertinent negative responses have been documented in the HPI. ROS Other: All systems not noted in ROS Statement are negative. Constitutional: Denies: fever Eyes: Denies: eye pain ENT: Denies: ear pain Respiratory: Reports: as per HPI, cough, dyspnea Cardiovascular: Denies: chest pain Endocrine: Reports: fatigue Gastrointestinal: Denies: abdominal pain Musculoskeletal: Denies: back pain Past Medical History Past Medical History: Hypertension Additional Past Medical History / Comment(s): kidney cyst, trigeminal nerve damage History of Any Multi-Drug Resistant Organisms: None Reported Past Surgical History: Section, Orthopedic Surgery Additional Past Surgical History / Comment(s): COLONOSCOPY lft shoulder removal of bone spurs, rotator cuff, and tendon patch. EGD. SURGERY TO REMOVE BASAL CELL CARCINOMA FROM RT SIDE OF NOSE Past Anesthesia/Blood Transfusion Reactions: No Reported Reaction Past Psychological History: Anxiety Smoking Status: Current every day smoker Past Alcohol Use History: None Reported Past Drug Use History: None Reported - Past Family History Father Family Medical History: No Reported History General Exam Limitations: no limitations General appearance: alert, in no apparent distress Head exam: Present: normocephalic Eye exam: Present: normal appearance Neck exam: Present: normal inspection Respiratory exam: Present: wheezes Cardiovascular Exam: Present: regular rate, normal rhythm GI/Abdominal exam: Present: soft. Absent: tenderness Extremities exam: Present: normal inspection. Absent: pedal edema, calf tenderness Neurological exam: Present: alert Psychiatric exam: Present: normal affect, normal mood Skin exam: Present: normal color Course Vital Signs 05/25/23 05/25/23 05/25/23 09:35 10:38 10:52 Temperature 98.7 F Pulse Rate 52 L 79 Respiratory 18 20 18 Rate Blood Pressure 135/80 O2 Sat by Pulse 95 Oximetry 05/25/23 11:02 Temperature Pulse Rate 81 Respiratory 18 Rate Blood Pressure O2 Sat by Pulse Oximetry EKG Findings - EKG Results: EKG: interpreted by ERMD, sinus rhythm, normal axis, normal QRS, normal ST/T Medical Decision Making - Medical Decision Making Was pt. sent in by a medical professional or institution (, PA, [employer], urgent care, hospital, or retirement...) When possible be specific @ -No Did you speak to anyone other than the patient for history (EMS, parent, family, police, friend...)? What history was obtained from this source @ -Family is present to help provide history including recent visit Did you review nursing and triage notes (agree or disagree)? Why? @ -I reviewed and agree with nursing and triage notes Were old charts reviewed (outside hosp., previous admission, EMS record, old EKG, old radiological studies, urgent care reports/EKG's, retirement records)? Report findings @ -No old charts were reviewed Differential Diagnosis (chest pain, altered mental status, abdominal pain women, abdominal pain men, vaginal bleeding, weakness, fever, dyspnea, syncope, headache, dizziness, GI bleed, back pain, seizure, CVA, palpatations, mental health, musculoskeletal)? @ -Differential Dyspnea: Coronary syndrome, arrhythmia, tamponade, asthma, COPD, pulmonary embolism, pneumonia, pneumothorax, pulmonary effusion, anaphylaxis, diabetic ketoacidosis, flailed chest, pulmonary contusion, diaphragmatic rupture, anemia, neuromuscular, this is not meant to be an all-inclusive list. EKG interpreted by me (3pts min.). @ -As above X-rays interpreted by me (1pt min.). @ -Chest x-ray shows nonspecific minimal interstitial changes CT interpreted by me (1pt min.). @ -None done U/S interpreted by me (1pt. min.). @ -None done What testing was considered but not performed or refused? (CT, X-rays, U/S, labs)? Why? @ -None What meds were considered but not given or refused? Why? @ -None Did you discuss the management of the patient with other professionals (professionals i.e. , PA, [employer], lab, RT, psych nurse, social service worker, scroll saw operator, teacher, co founder and chief strategy officer, case resolution specialist)? Give summary @ -No Was smoking cessation discussed for >3mins.? @ -No Was critical care preformed (if so, how long)? @ -No Were there social determinants of health that impacted care today? How? (Homelessness, low income, unemployed, alcoholism, drug addiction, transportation, low edu. Level, literacy, decrease access to med. care, shelter, rehab)? @ -No Was there de-escalation of care discussed even if they declined (Discuss DNR or withdrawal of care, Hospice)? DNR status @ -No What co-morbidities impacted this encounter? (DM, HTN, Smoking, COPD, CAD, Cancer, CVA, ARF, Chemo, Hep., AIDS, mental health diagnosis, sleep apnea, morbid obesity)? @ -None Was patient admitted / discharged? Hospital course, mention meds given and route, prescriptions, significant lab abnormalities, going to OR and other pertinent info. @ -Patient reevaluated and resting comfortably in bed. Patient and family updated on results. Patient states she is feeling better and comfortable discharge. Lung sounds have improved. Increased air exchange and decreased wheezing. 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 Patient is encouraged to do this. Patient also be prescribed inhaler. Undiagnosed new problem with uncertain prognosis? @ -No Drug Therapy requiring intensive monitoring for toxicity (Heparin, Nitro, Insulin, Cardizem)? @ -No Were any procedures done? @ -No Diagnosis/symptom? @ -Influenza, bronchospasm Acute, or Chronic, or Acute on Chronic? @ -Acute, acute Uncomplicated (without systemic symptoms) or Complicated (systemic symptoms)? @ -default Side effects of treatment? @ -No Exacerbation, Progression, or Severe Exacerbation? @ -No Poses a threat to life or bodily function? How? (Chest pain, USA, NC, pneumonia, PE, COPD, DKA, ARF, appy, cholecystitis, CVA, Diverticulitis, Homicidal, Suicidal, threat to staff... and all critical care pts) @ -No - Lab Data Result diagrams: 05/25/23 10:30 05/25/23 10:30 Lab Results 05/25/23 05/25/23 05/25/23 Range/Units 10:30 10:30 10:30 WBC 5.1 (3.8-10.6) k/uL RBC 4.35 (3.80-5.40) m/uL Hgb 13.8 (11.4-16.0) gm/dL Hct 40.1 (34.0-46.0) % MCV 92.2 (80.0-100.0) fL MCH 31.8 (25.0-35.0) pg MCHC 34.5 (31.0-37.0) g/dL RDW 13.8 (11.5-15.5) % Plt Count 196 (150-450) k/uL MPV 8.3 Neutrophils % 68 % Lymphocytes % 23 % Monocytes % 6 % Eosinophils % 1 % Basophils % 0 % Neutrophils # 3.5 (1.3-7.7) k/uL Lymphocytes # 1.2 (1.0-4.8) k/uL Monocytes # 0.3 (0-1.0) k/uL Eosinophils # 0.1 (0-0.7) k/uL Basophils # 0.0 (0-0.2) k/uL Sodium 131 L (137-145) mmol/L Potassium 4.1 (3.5-5.1) mmol/L Chloride 98 (98-107) mmol/L Carbon Dioxide 22 (22-30) mmol/L Anion Gap 11 mmol/L BUN 5 L (7-17) mg/dL Creatinine 0.44 L (0.52-1.04) mg/dL Est GFR (CKD-EPI)AfAm >90 (>60 ml/min/1.73 sqM) Est GFR (CKD-EPI)NonAf >90 (>60 ml/min/1.73 sqM) Glucose 146 H (74-99) mg/dL Plasma Lactic Acid Juan 1.9 (0.7-2.0) mmol/L Calcium 8.8 (8.4-10.2) mg/dL Magnesium 2.0 (1.6-2.3) mg/dL Total Bilirubin 0.7 (0.2-1.3) mg/dL AST 28 (14-36) U/L ALT 31 (4-34) U/L Alkaline Phosphatase 62 (38-126) U/L Total Protein 7.2 (6.3-8.2) g/dL Albumin 3.9 (3.5-5.0) g/dL Disposition Clinical Impression: Influenza A, Bronchospasm Disposition: HOME SELF-CARE Condition: Stable Additional Instructions: Please do follow-up with your primary care physician in the next one or 2 days for recheck. Return for difficulty breathing, uncontrolled fevers, worsening symptoms or any other concerns. Prescription has been sent to pharmacy. Please also have your steroid prescription filled and start this today. Prescriptions: Albuterol Inhaler [Ventolin Hfa Inhaler] 2 puff INHALATION Q4HR PRN #1 each PRN Reason: Dyspnea Is patient prescribed a controlled substance at d/c from ED?: No Referrals: Rian Nails DO [Primary Care Provider] - 1-2 days Time of Disposition: 11:47
[2023-05-25 10:42] LABS: Basophils % (A) 0 %; Eosinophils # (A) 0.1 k/uL (0-0.7); Eosinophils % (A) 1 %; HCT 40.1 % (34.0-46.0); HGB 13.8 gm/dL (11.4-16.0); Lymphocytes # (A) 1.2 k/uL (1.0-4.8); Lymphocytes % (A) 23 %; MCH 31.8 pg (25.0-35.0); MCHC 34.5 g/dL (31.0-37.0); MCV 92.2 fL (80.0-100.0); Mean Platelet Volume 8.3; Monocytes # (A) 0.3 k/uL (0-1.0); Monocytes % (A) 6 %; Neutrophils # (A) 3.5 k/uL (1.3-7.7); Neutrophils % (A) 68 %; Platelet Count 196 k/uL (150-450); RBC 4.35 m/uL (3.80-5.40); RDW 13.8 % (11.5-15.5); WBC 5.1 k/uL (3.8-10.6)
[2023-05-25 10:52] LABS: ALT 31 U/L (4-34); AST 28 U/L (14-36); African American GFR (CKD) >90 (>60 ml/min/1.73 sqM); Albumin 3.9 g/dL (3.5-5.0); Alkaline Phosphatase 62 U/L (38-126); Anion Gap 11 mmol/L; Blood Urea Nitrogen 5 mg/dL (7-17); Calcium 8.8 mg/dL (8.4-10.2); Carbon Dioxide 22 mmol/L (22-30); Chloride 98 mmol/L (98-107); Glucose 146 mg/dL (74-99); Non-African American GFR(CKD) >90 (>60 ml/min/1.73 sqM); Potassium 4.1 mmol/L (3.5-5.1); Sodium 131 mmol/L (137-145); Total Bilirubin 0.7 mg/dL (0.2-1.3); Total Protein 7.2 g/dL (6.3-8.2)
--- NOTE | 2023-05-25 11:39 | XR ---
EXAMINATION TYPE: XR chest 2V DATE OF EXAM: 05/25/2023 COMPARISON: 05/21/2023 TECHNIQUE: PA and lateral views submitted. HISTORY: Difficulty in breathing FINDINGS: The lungs are clear and there is no pneumothorax, pleural effusion, or focal pneumonia. Heart size normal and no overt failure. Osseous structures demonstrate hypertrophic and degenerative changes of the spine. Prominent interstitium with biapical pleural thickening. Atherosclerotic change aorta. Hyp erinflation suggests COPD. IMPRESSION: 1. No acute process. Correlate for COPD and chronic interstitial lung disease/fibrosis.
[2023-05-25 12:07] VITALS: BP 120/59; PULSE 72; RESP 16; TEMP 98.1
== END 2023-05-25 12:05 | disposition home or self-care (01) ==
LOC: EC 09:34
DX: J10.1 Influenza due to other identified influenza virus with other respiratory manifestations (principal); J98.01 Acute bronchospasm; I10 Essential (primary) hypertension; F41.9 Anxiety disorder, unspecified; F17.200 Nicotine dependence, unspecified, uncomplicated; Z79.899 Other long term (current) drug therapy; Z88.5 Allergy status to narcotic agent
CPT/HCPCS: 36415; 94640; 93005; 80053; 83605; 83735; 85025; 71046; 99285; 96374; 96361 ×2; J2930

== ENCOUNTER → 2024-05-06 | Outpatient (CLI) | payer MEDICARE ==
--- NOTE | 2024-06-12 14:51 | XR ---
EXAMINATION TYPE: XR foot complete RT DATE OF EXAM: 05/06/2024 INDICATION: Patient age:Female; 68 years old; Reason for study: OA DJD; PHH. COMPARISON: None TECHNIQUE: The right foot was examined in the AP, oblique, and lateral projections. FINDINGS: No evidence of any acute osseous pathology. No evidence of soft tissue swelling. Joints are preserve d. Incidental note is made of symphalangism of the fifth distal interphalangeal joint. IMPRESSION: 1. No evidence of acute fracture. 2. No significant osteoarthritic change.
--- NOTE | 2024-06-12 14:52 | XR ---
EXAMINATION TYPE: XR abdomen 1V DATE OF EXAM: 05/06/2024 COMPARISON: NONE HISTORY: Diarrhea TECHNIQUE: Single upright KUB image of the abdomen is obtained FINDINGS: Small bowel demonstrates no evidence for dilatation or air fluid levels. Gas and fecal material is seen in non-distended colon. No convincing evidence for pneumoperitoneum. No unusual calcifications. The lung bases are clear. The osseous structures are intact. IMPRESSION: Overall nonobstructive bowel gas pattern.
== END | disposition home or self-care (01) ==
LOC: RADXRMAIN 11:26
PROVIDERS: ATTEND Family Medicine
DX: M19.071 Primary osteoarthritis, right ankle and foot (principal); R19.7 Diarrhea, unspecified
CPT/HCPCS: 74018

== ENCOUNTER → 2024-08-15 | Outpatient (CLI) | payer MEDICARE ==
--- NOTE | 2024-08-18 18:27 | MR ---
EXAMINATION TYPE: MR right shoulder without IV contrast DATE OF EXAM: 08/15/2024 COMPARISON: 07/02/2024 HISTORY: Pain TECHNIQUE: Multiplanar, multisequence imaging of the right shoulder shoulder is performed without con trast. FINDINGS: Rotator Cuff: Moderate diffuse supraspinatus tendinopathy without discrete tear. Infraspinatus, subscapularis and teres minor tendons are intact. Mild diffuse fatty marbling of the rotator cuff musculature without significant loss of muscle bulk. Acromioclavicular Joint: Alignment is intact. No effusion. Mild osteoarthritis. Glenohumeral Joint: No displaced labral tear or para labral cysts. Alignment is intact. No significan t effusion. No high-grade chondral defects. Biceps Tendon: Intact. Bone marrow signal: Negative for fracture or marrow replacement. Fixation anchor within the greater h umeral tuberosity. Other: Small amount of fluid in the subacromial/subdeltoid bursa. IMPRESSION: 1. Moderate supraspinatus tendinopathy without discrete tear. 2. Mild acromioclavicular joint osteoarthritis. [facility], , 08/18/2024 6:25 PM
== END | disposition home or self-care (01) ==
LOC: RADMRIMAIN 12:47
PROVIDERS: ATTEND Orthopaedic Surgery
DX: M19.012 Primary osteoarthritis, left shoulder (principal); M75.22 Bicipital tendinitis, left shoulder

== ENCOUNTER → 2025-04-03 | Outpatient (CLI) | payer MEDICARE ==
--- NOTE | 2025-04-03 10:04 | US ---
EXAMINATION TYPE: US abdomen complete DATE OF EXAM: 04/03/2025 COMPARISON: CT abdomen and pelvis 08/18/2022, renal ultrasound 08/17/2022 CLINICAL INDICATION: Female, 69 years old with history of R10.32 LEFT LOWER QUADRANT PAIN Z87.448; TECHNIQUE: Grayscale and color Doppler imaging of the abdomen was performed. FINDINGS: EXAM MEASUREMENTS: Liver Length: 16.4cm Gallbladder Wall: 0.2m CBD: 0.3m, color Doppler imaging was utilized to isolate the common bile duct for measurement. Spleen: 10.0cm Right Kidney: 9.2x4.3x6.0cm Left Kidney: 10.5x5.1x6.1cm [employer]ER[employer] INTERN NOTES: limited study due to overlying bowel/gas Pancreas: Tail obscured by overlying bowel gas Liver: Increased attenuation, decreased visualization of vessels suggestive of fatty infiltrate, dif ficult to penetrate Gallbladder: No stones seen Evidence for sonographic Duarte's sign: No CBD: wnl Spleen: wnl Right Kidney: wnl, No hydronephrosis, calculi or masses seen Left Kidney: Anechoic area seen: 6.0x4.3x6.7cm Upper IVC: wnl as best visualized, partially obscured Abd Aorta: prox: not well visualized, mid/dist: wnl as best visualized The liver is is diffusely echogenic and difficult to penetrate without focal lesion identified. The v isualized intrahepatic portion of the IVC and visualized portions of the abdominal aorta are within n ormal limits. The proximal portion is obscured by overlying bowel gas. There is no evidence of cholel ithiasis. Common bile duct is unremarkable. The visualized portions of the pancreas are homogenous. The spleen is unremarkable. Kidneys are symmetric and free of hydronephrosis. No solid renal lesi ons are seen. Simple thin-walled left renal cyst measuring up to 6.7 cm. IMPRESSION: 1. No ultrasound evidence for acute process. 2. Hepatic steatosis. 3. Simple left renal cyst. No follow up recommended. [facility], , 04/03/2025 10:01 AM
== END | disposition home or self-care (01) ==
LOC: RADUSWWP 09:20
PROVIDERS: ATTEND Family Medicine
DX: K76.0 Fatty (change of) liver, not elsewhere classified (principal); N28.1 Cyst of kidney, acquired; Z87.448 Personal history of other diseases of urinary system
CPT/HCPCS: 76700